=== PATIENT | male | born 1945 | race Hispanic/Latino ===

== ENCOUNTER 2017-08-28 17:05 | Observation (INO) | payer MEDICARE, OTHER ==
[~2017-08-28] VITALS: Ht 170.2 cm; Wt 102.6 kg
[~2017-08-28 17:05] MED LIST: AMITRIPTYLINE100 MG PO; AMLODIPINE BESY10 MG; ATORVASTATIN CA80 MG PO; CHLORTHALIDONE25 MG; GLIMEPIRIDE4 MG PO; HYDRALAZINE HCL25 MG PO; LEVEMIR SQ; LISINOPRIL40 MG; LOSARTAN POTAS100 MG; METFORMIN HCL500 MG PO; METOPROLOL SUCC50 MG; PIOGLITAZONE-M1 EAC1; TRULICITY SQ
[2017-08-28] MEDS ORDERED: ASPIRIN 81 MG CHEW TAB PO ONE (17:45)
[2017-08-28 17:50] LABS: BASOPHILS % 0.3 % (0.0-1.0); EOSINOPHILS # (AUTO) 0.1 (0.0-0.4); EOSINOPHILS % 1.8 % (0.0-6.0); HEMATOCRIT 41.1 % (38.2-49.6); LYMPHOCYTES # (AUTO) 0.8 (1.0-3.2); LYMPHOCYTES % 10.3 % (18.0-39.1); MEAN CORPUSCULAR HGB CONC 34.1 g/dL (31-35); MEAN CORPUSCULAR VOLUME 90.9 fL (81-99); MONOCYTES # (AUTO) 0.6 (0.2-0.8); MONOCYTES % 7.8 % (4.4-11.3); NEUTROPHILS # (AUTO) 6.3 (2.1-6.9); NEUTROPHILS % 79.5 % (38.7-80.0); PLATELET COUNT 204 x10e3/uL (140-360); RED BLOOD COUNT 4.52 x10e6/uL (4.3-5.7); RED CELL DISTRIBUTION WIDTH 12.8 % (11.7-14.4)
[2017-08-28 18:05] LABS: INR 1.17
[2017-08-28 18:06] LABS: PARTIAL THROMBOPLASTIN TIME 27.4 seconds (23.8-35.5)
[2017-08-28 18:13] LABS: ALBUMIN 3.2 g/dL (3.5-5.0); ALBUMIN/GLOBULIN RATIO 0.8 (0.8-2.0); ANION GAP 13.3 mmol/L (8-16); CALCIUM 8.7 mg/dL (8.4-10.2); CREATININE, SERUM 1.58 mg/dL (0.72-1.25); POTASSIUM 4.3 mmol/L (3.5-5.1)
[2017-08-28 18:23] LABS: CREATINE KINASE MB 5.9 ng/mL (0-5.0)
[2017-08-28 18:38] LABS: BILIRUBIN,URINE NEGATIVE (NEGATIVE); KETONES,URINE NEGATIVE (NEGATIVE); LEUKOCYTE ESTERASE ,URINE NEGATIVE (NEGATIVE); NITRITE,URINE NEGATIVE (NEGATIVE); PROTEIN,URINE DIPSTICK 3+ (NEGATIVE); URINE UROBILINOGEN 0.2 mg/dL (0.2 - 1)
[2017-08-28 18:40] LABS: CLARITY,URINE HAZY (CLEAR); COLOR,URINE YELLOW (YELLOW)
[2017-08-28 18:52] LABS: EPITHELIAL CELLS,URINE FEW /LPF
[2017-08-28 18:54] LABS: BACTERIA,URINE RARE /HPF
--- NOTE | 2017-08-28 21:15 | Diagnostic Imaging Report ---
EXAMINATION: CHEST SINGLE (PORTABLE) INDICATION: \S\CHEST PAIN \S\[id number] \S\2020 \S\Y COMPARISON: None FINDINGS: AP view TUBES and LINES: None. LUNGS: Lungs are well inflated. Central pulmonary venous congestion. Right upper lobe opacity between the right fifth and sixth posterior ribs. PLEURA: No pleural effusion or pneumothorax. HEART AND MEDIASTINUM: Cardiac silhouette is mildly enlarged. BONES AND SOFT TISSUES: No acute osseous lesion. Right shoulder prosthesis. Soft tissues are unremarkable. UPPER ABDOMEN: No free air under the diaphragm. IMPRESSION: Right upper lobe opacity may represent pneumonia or a pulmonary lesion. Recommend chest CT with contrast for further evaluation. Signed by: DR. Price Abreu MD on 08/28/2017 9:11 PM
[2017-08-28] MEDS ORDERED: FUROSEMIDE INJ 10 MG/ML 4 ML VIAL IV ONE (23:30)
[2017-08-29] VITALS (8 sets, daily range): BP systolic 135–188; BP diastolic 86–107
[2017-08-29] MEDS ORDERED: MORPHINE SULFATE 2 MG/ML SYR IV PRN (00:15)
[2017-08-29] MEDS ORDERED: DEXTROSE 50% SYRINGE 50 ML IV PRN (00:15)
--- OUTSIDE RECORDS SUMMARY | 2017-08-29 00:15 | XMS REPORT ---
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 Allergies, Adverse Reactions, Alerts This patient has no known allergies or adverse reactions. Medications This patient has no known medications. Results Test Description Test Time Test Comments Text Results Atomic Results Result Comments CHEST SINGLE (PORTABLE) [place] [address] Patient Name: LUAN BOOGIE MR #: [id number] : 1945 Age/Sex: 72/M Req #: [id number] Adm Physician: Ordered by: KAYCE BRYANT MD Report #: [id number] Location: ER Room/Bed: Procedure: [id number] DX/CHEST SINGLE (PORTABLE) Exam Date: 08/28/17 Exam Time: 2019 REPORT STATUS: Signed EXAMINATION: CHEST SINGLE (PORTABLE) INDICATION: COMPARISON: None FINDINGS: AP view TUBES and LINES: None. LUNGS: Lungs are well inflated. Central pulmonary venous congestion. Right upper lobe opacity between the right fifth and sixth posterior ribs. PLEURA: No pleural effusion or pneumothorax. HEART AND MEDIASTINUM: Cardiac silhouette is mildly enlarged. BONES AND SOFT TISSUES: No acute osseous lesion. Right shoulder prosthesis. Soft tissues are unremarkable. UPPER ABDOMEN: No free air under the diaphragm. IMPRESSION: Right upper lobe opacity may represent pneumonia or a pulmonary lesion. Recommend chest CT with contrast for further evaluation. Signed by: DR. Price Abreu MD on 08/28/2017 9:11 PM Dictated By: PRICE ABREU MD 10 Transcribed By: KENTON on 2110 COPY TO: KAYCE BRYANT MD
[2017-08-29] MEDS: CEFTRIAXONE SOD 1 GM VIAL IV SCH ×2 (01:46→13:48)
[2017-08-29 02:40] LABS: CREATINE KINASE MB 4.5 ng/mL (0-5.0)
[2017-08-29] MEDS ORDERED: LISINOPRIL10 MG PO (03:51)
[2017-08-29] MEDS ORDERED: NAPROXEN250 MG PO (03:52)
[2017-08-29] MEDS: INSULIN REGULAR, HUMAN 100 UNIT/1 ML 3ML VIAL SQ SCH ×4 (07:45→21:10)
[2017-08-29] MEDS: HYDRALAZINE HCL 25 MG TAB PO SCH ×2 (08:15→16:50)
[2017-08-29] MEDS: FUROSEMIDE INJ 10 MG/ML 4 ML VIAL IV SCH ×2 (08:15→20:40)
[2017-08-29] MEDS: ASPIRIN 81 MG ENTERIC COATED PO SCH (08:15)
[2017-08-29] MEDS: METOPROLOL TARTRATE 25 MG TAB PO SCH ×2 (08:15→16:50)
[2017-08-29] MEDS: AMLODIPINE BESYLATE 10 MG TAB PO SCH (08:15)
--- NOTE | 2017-08-29 09:49 | Consultation ---
DATE OF CONSULTATION: August 29, 2017 CARDIOLOGY CONSULTATION REASON FOR CONSULTATION: CHF exacerbation. HPI: This is a pleasant 72-year-old male that presented with shortness of breath. According to the patient, for the last 3-4 days he was having shortness of breath that gets worse with exertion. He was not able to lay flat that he decided to come into the emergency room for evaluation. He has a history of CHF, CKD. He denies chest pain, any palpitations, any dizziness. EKG showed normal sinus rhythm with frequent PVCs. His BNP was 841. 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 . PAST SURGICAL HISTORY: Back surgery times 2, cardiac stents, bilateral knee surgery, bowel resection, and prostate surgery times 2. FAMILY HISTORY: Positive for hypertension. SOCIAL HISTORY: He quit smoking and lives at home with family. MEDICATIONS: See med list. ALLERGIES: HE IS NOT ALLERGIC TO ANY MEDICATIONS. REVIEW OF SYSTEMS: Negative except those mentioned above. PHYSICAL EXAMINATION VITAL SIGNS: Temperature 97, heart rate 91, blood pressure 161/100, respirations 19, oxygen saturation 96% on room air. GENERAL: He is awake, alert and oriented times 3. HEENT: Mucous membrane moist. NECK: Supple. LUNGS: Bilateral with decreased breath sounds. CARDIOVASCULAR: S1 and S2 present. ABDOMEN: Soft. NEUROLOGICAL: Intact. He is able to move all extremities. EXTREMITIES: Bilateral lower extremities with trace edema. LABS: Sodium 142, potassium 4.3, chloride 109, CO2 24, BUN 24, creatinine 1.58, glucose 154. White blood cells 7.9, hemoglobin 14, hematocrit 41.1, and platelets 204,000. PT 14, PTT 27.4 and INR 1.17. IMPRESSION 1. Congestive heart failure exacerbation. 2. Diabetes. 3. Hypertension. 4. Chronic kidney disease. 6. BPH. 7. Chronic back pain. 8. History of coronary artery disease with stents. 9. History of cerebrovascular accident. ASSESSMENT AND PLAN: Will get an echocardiogram to assess the LV and valve function. Will continue diuretic. Resume his home medications of beta shola and Norvasc. Will put him on 1.5 L fluid restriction. Continue low salt diet and daily weights. Further cardiac workup pending clinical course. Thank you for this consultation. DICTATED BY JIMMY DELGADO NP Job#: [id number] RI
[2017-08-29 10:28] LABS: CREATINE KINASE MB 5.5 ng/mL (0-5.0)
--- NOTE | 2017-08-29 12:48 | History and Physical ---
INCOMPLETE REPORT Job#: [id number] EV
--- NOTE | 2017-08-29 13:40 | History and Physical ---
CHIEF COMPLAINT: Shortness of breath. HISTORY OF PRESENT ILLNESS: Mr. Chatman is a 72-year-old male who presented to the emergency room with shortness of breath. Patient is a known patient of Dr. Gorman. He reports that the shortness of breath started yesterday and progressively got worse, so he decided to come to the emergency room. He denies any chest pain, nausea, vomiting, or diarrhea. In the emergency room, patient was wheezing and was given diuretics and patient started feeling better and was admitted for further treatment. He reports that he was having symptoms for 3 to 4 days. His BNP was 841 in the emergency room. REVIEW OF SYSTEMS GENERAL: Denies any fever or chills. HEAD: Denies any head trauma or head injury. ENT: Denies any earache, nosebleed, or throat pain. CVS: Denies any chest pain. RESPIRATORY: Shortness of breath. GI: Denies any nausea or vomiting. The rest of the review of systems is negative except as in HPI. PAST MEDICAL HISTORY: Diabetes, hypertension, coronary artery disease, and hypercholesterolemia. PAST SURGICAL HISTORY: Bilateral total knee replacement, colon resection for diverticulitis, 2 back surgeries, appendectomy, cholecystectomy, and stent placement. FAMILY HISTORY: Significant for hypertension in the family. SOCIAL HISTORY: He quit smoking 30 years ago, smoked for 30 years, 1 pack per day. Lives with his . He used to work in a [employer] and last job was with [employer]. PHYSICAL EXAMINATION VITAL SIGNS: Temperature 96.3, pulse of 81, blood pressure 135/89, respiratory rate 18, and O2 sat 98% on 2 L. SKIN: Warm and dry. GENERAL APPEARANCE: Elderly male who was in mild respiratory distress in the emergency [place], but currently doing well. HEENT: Head is atraumatic and normocephalic. Pupils are reactive. NECK: Supple. No JVD. Thyroid is not enlarged. No cervical lymphadenopathy. CHEST: Clear to auscultation bilaterally. HEART: S1 and S2 audible. ABDOMEN: Soft, nontender, and nondistended. EXTREMITIES: No clubbing or cyanosis. Trace pedal edema. NEUROLOGIC: Awake and alert. LABS: White count of 7.9, hemoglobin 14.0, and platelets 204. Chemistry: Sodium 142, potassium 4.3, chloride 109, BUN 24, and creatinine 1.58. There is no baseline creatinine. Creatine kinase 341, CK-MB 5.90, and BNP 841. Blood cultures have been pending. Chest x-ray was showing increased vascular congestion. No focal infiltrate reported as right upper lobe opacity. Urinalysis done in the emergency room is showing wbc's of 6-10. ASSESSMENT: Mr. Biswas is a 72-year-old male who presented with worsening shortness of breath. Patient has a known history of congestive heart failure. According to Dr. Gorman's note, patient has coronary artery disease with previous stent. BNP was 841. Echo has been ordered, but it has not been read. CURRENT PROBLEMS 1. Acute exacerbation of congestive heart failure, likely systolic dysfunction. 2. Possibility of pneumonia. 3. Hypertension. 4. Hyperlipidemia. 5. Coronary artery disease. PLAN 1. Continue the patient on antihypertensive medications. 2. Continue IV Rocephin. I will add azithromycin for possibility of pneumonia. 3. CT chest. Patient has his 02-[id number]-beor smoking history and chest x-ray is reported as right upper lobe opacity. 4. He is on fluid restriction. 5. Patient has CKD. Creatinine is 1.9, currently stable. We will follow closely. Job#: [id number] VAS
[2017-08-29] MEDS ORDERED: NAPROXEN 250 MG TAB PO PRN (14:00)
--- NOTE | 2017-08-29 16:35 | Diagnostic Imaging Report ---
PROCEDURE: CT CHEST WITHOUT CONTRAST CT scan of the chest WITHOUT intravenous contrast, using standard protocol. TECHNIQUE: The chest was scanned utilizing a multidetector helical scanner from the apex to the level of the adrenal glands. No IV contrast was administered per physician's request. Coronal and sagittal multiplanar reformations were obtained. COMPARISON: None. INDICATIONS: CHF, PNEUMONIA FINDINGS: Lines/tubes: None. Lungs and Airways: Focal ground glass opacities in the right upper lobe (series 3, images 26 and 34). Linear opacity in the lateral lingula, likely represent subsegmental atelectasis or scarring. Mild bilateral lower lobe compressive atelectasis. Calcified granuloma in the left upper lobe (series 3, image 21). No nodules, masses, or consolidation. Airways are clear, without endobronchial lesions. Pleura: Small bilateral pleural effusions. Heart and mediastinum: Thyroid is unremarkable. Mild cardiomegaly. Atherosclerotic calcification of the coronary arteries and thoracic aortic arch. Aorta is non-aneurysmal. Main pulmonary artery is mildly enlarged, measuring approximately 3.2 cm. Lymph nodes: No mediastinal, hilar, or axillary adenopathy. Abdomen: Limited views of the upper abdomen show no abnormality within the visualized liver, spleen, pancreas, or kidneys. The adrenal glands are normal. Bones: No aggressive lytic lesion. Soft tissues are grossly unremarkable. IMPRESSION: 1. findings in the right upper lobe may represent pneumonia/infection in the acute clinical setting. Less likely, this may represent interstitial lung disease in the chronic setting. 2. Small bilateral pleural effusions and associated mild bilateral lower lobe compressive atelectasis. 3. Mild cardiomegaly. Main pulmonary artery is mildly enlarged, suggesting pulmonary hypertension. Jordan Prasad M.D. Dictated by: Jordan Prasad M.D. on 08/29/2017 at 16:35 Electronically approved by: Jordan Prasad M.D. on 08/29/2017 at 16:35
[2017-08-29] MEDS: METFORMIN HCL 500 MG TAB PO SCH (16:50)
[2017-08-29] MEDS: GLIMEPIRIDE 2 MG TAB PO SCH (16:50)
[2017-08-29] MEDS ORDERED: NON-FORMULARY MEDICATION (Glimepiride 4 MG) PO SCH (17:00)
[2017-08-29 18:30] LABS: CREATINE KINASE MB 4.1 ng/mL (0-5.0)
[2017-08-29] MEDS: AMITRIPTYLINE HCL 25 MG TAB PO SCH (20:40)
[2017-08-29] MEDS ORDERED: NON-FORMULARY MEDICATION (Amitriptyline Hcl 100 MG) PO SCH (21:00)
[2017-08-29] MEDS ORDERED: NON-FORMULARY MEDICATION (Atorvastatin Calcium 80 MG) PO SCH (21:00)
[2017-08-29] MEDS: ATORVASTATIN 40 MG TAB PO SCH (21:30)
[2017-08-30] VITALS (8 sets, daily range): BP systolic 131–158; BP diastolic 74–93
[2017-08-30] MEDS: CEFTRIAXONE SOD 1 GM VIAL IV SCH ×3 (03:30→23:08)
[2017-08-30 07:24] LABS: BASOPHILS % 0.5 % (0.0-1.0); EOSINOPHILS # (AUTO) 0.1 (0.0-0.4); EOSINOPHILS % 1.9 % (0.0-6.0); HEMOGLOBIN 14.7 g/dL (14.0-18.0); LYMPHOCYTES # (AUTO) 1.2 (1.0-3.2); LYMPHOCYTES % 15.8 % (18.0-39.1); MEAN CORPUSCULAR HEMOGLOBIN 30.8 pg (28-32); MEAN CORPUSCULAR HGB CONC 34.2 g/dL (31-35); MEAN CORPUSCULAR VOLUME 90.1 fL (81-99); MONOCYTES # (AUTO) 0.5 (0.2-0.8); MONOCYTES % 6.9 % (4.4-11.3); NEUTROPHILS # (AUTO) 5.5 (2.1-6.9); NEUTROPHILS % 74.6 % (38.7-80.0); PLATELET COUNT 212 x10e3/uL (140-360); RED BLOOD COUNT 4.77 x10e6/uL (4.3-5.7); RED CELL DISTRIBUTION WIDTH 12.5 % (11.7-14.4)
[2017-08-30] MEDS: INSULIN REGULAR, HUMAN 100 UNIT/1 ML 3ML VIAL SQ SCH ×4 (07:30→20:17)
[2017-08-30 07:53] LABS: ALBUMIN 3.2 g/dL (3.5-5.0); ALBUMIN/GLOBULIN RATIO 0.8 (0.8-2.0); ANION GAP 13.5 mmol/L (8-16); CALCIUM 9.1 mg/dL (8.4-10.2); CHOL/HDL RATIO 5.8 (3.9-4.7); CREATININE, SERUM 1.6 mg/dL (0.72-1.25); POTASSIUM 3.5 mmol/L (3.5-5.1)
[2017-08-30] MEDS: ASPIRIN 81 MG ENTERIC COATED PO SCH (09:23)
[2017-08-30] MEDS: METOPROLOL TARTRATE 25 MG TAB PO SCH ×2 (09:23→16:17)
[2017-08-30] MEDS: GLIMEPIRIDE 2 MG TAB PO SCH ×2 (09:23→16:16)
[2017-08-30] MEDS: HYDRALAZINE HCL 25 MG TAB PO SCH ×2 (09:23→16:16)
[2017-08-30] MEDS: METFORMIN HCL 500 MG TAB PO SCH ×2 (09:23→16:16)
[2017-08-30] MEDS: AZITHROMYCIN 250 MG TAB PO SCH (09:24)
[2017-08-30] MEDS: LISINOPRIL 10 MG TAB PO SCH (09:24)
[2017-08-30] MEDS: AMLODIPINE BESYLATE 10 MG TAB PO SCH (09:24)
[2017-08-30] MEDS: FUROSEMIDE INJ 10 MG/ML 4 ML VIAL IV SCH ×2 (09:42→20:54)
[2017-08-30] MEDS: ONDANSETRON HCL INJ 2 MG/ML VIAL IV PRN (12:32)
--- NOTE | 2017-08-30 13:36 | Diagnostic Imaging Report ---
EXAMINATION: Head CT HISTORY: Slurred speech for the last 2 days, history of stroke COMPARISON: None available TECHNIQUE: Multidetector axial images were obtained with, without contrast from the foramen magnum to the vertex . The images were reconstructed using brain and bone algorithms. Thin section brain images were reformatted into coronal and sagittal planes. Intravenous contrast: None. Motion/streaking artifact limits the evaluation of the skull base and posterior cranial fossa. FINDINGS: Parenchyma: 1. No abnormal densities. 2. No mass or hemorrhage. No CT evidence of acute territorial vascular insult. Extra-axial spaces:No abnormal density. No extra-axial fluid collections Brain volume: Normal for age. Ventricles: No hydrocephalus or displacement. Arteries: No density suggestive of thrombus. Dural sinuses: No abnormal density. Extra-axial spaces: No abnormal density. Foramen magnum: No mass, Chiari malformation, or basilar invagination. Sella: No obvious mass. Paranasal/mastoid sinuses: Imaged portions unremarkable. Skull/Scalp: No lytic or blastic lesions. No fractures. Heterogeneous bone marrow density within the clivus may be related to osteopenia, less likely bone marrow replacement or infiltration. Comparison to prior studies if available is recommended. IMPRESSION: No acute intracranial hemorrhage or cortical infarct. Signed by: Dr. Yasemin Carpenter M.D. on 08/30/2017 1:33 PM
[2017-08-30 15:27] LABS: BILIRUBIN,URINE NEGATIVE (NEGATIVE); COLOR,URINE YELLOW (YELLOW); KETONES,URINE NEGATIVE (NEGATIVE); LEUKOCYTE ESTERASE ,URINE NEGATIVE (NEGATIVE); NITRITE,URINE NEGATIVE (NEGATIVE); PROTEIN,URINE DIPSTICK 3+ (NEGATIVE); URINE UROBILINOGEN 0.2 mg/dL (0.2 - 1)
[2017-08-30 15:29] LABS: CLARITY,URINE SL CLOUDY (CLEAR)
[2017-08-30 15:38] LABS: EPITHELIAL CELLS,URINE RARE /LPF
--- NOTE | 2017-08-30 18:00 | Diagnostic Imaging Report ---
EXAM: Renal Ultrasound INDICATION: \S\REANL FAILURE; MD REQUEST \S\[id number] \S\1707 COMPARISON: None TECHNIQUE: Transverse and longitudinal images of the kidneys and bladder were obtained. FINDINGS: Right Kidney: Size: 11.7 cm Echogenicity: Normal Parenchymal thickness: Normal Collecting system: No hydronephrosis Stones: None Cyst/Mass: 1.2 x 1.5 x 1.5 cm midpole parapelvic cyst with thin septation. Left Kidney: Size: 11.2 cm Echogenicity: Normal Parenchymal thickness: Normal Collecting system: No hydronephrosis Stones: None Cyst/Mass: 1.6 x 1.4 x 1.8 cm superior pole cyst. Bladder: Unremarkable. IMPRESSION: Bilateral renal cysts, mildly complex on the right side. Recommend follow-up with renal ultrasound in 6 months to ensure stability. Signed by: Dr. Jose Luis Lau MD on 08/30/2017 5:56 PM
[2017-08-30] MEDS: AMITRIPTYLINE HCL 25 MG TAB PO SCH (20:54)
[2017-08-30] MEDS: ATORVASTATIN 40 MG TAB PO SCH (20:54)
[2017-08-31] VITALS: BP 131/82
[2017-08-31 04:58] VITALS: BP 137/81
[2017-08-31 07:15] VITALS: BP 133/81
[2017-08-31] MEDS: INSULIN REGULAR, HUMAN 100 UNIT/1 ML 3ML VIAL SQ SCH (07:30)
[2017-08-31 07:35] LABS: HEMATOCRIT 43.4 % (38.2-49.6); HEMOGLOBIN 14.8 g/dL (14.0-18.0); MEAN CORPUSCULAR HEMOGLOBIN 30.6 pg (28-32); MEAN CORPUSCULAR HGB CONC 34.1 g/dL (31-35); MEAN CORPUSCULAR VOLUME 89.9 fL (81-99); PLATELET COUNT 209 x10e3/uL (140-360); RED BLOOD COUNT 4.83 x10e6/uL (4.3-5.7); RED CELL DISTRIBUTION WIDTH 12.4 % (11.7-14.4)
[2017-08-31 07:47] VITALS: BP 133/81
[2017-08-31 08:07] LABS: ANION GAP 15.5 mmol/L (8-16); CREATININE, SERUM 1.85 mg/dL (0.72-1.25); POTASSIUM 3.5 mmol/L (3.5-5.1)
[2017-08-31] MEDS: GLIMEPIRIDE 2 MG TAB PO SCH (08:54)
[2017-08-31] MEDS: AMLODIPINE BESYLATE 10 MG TAB PO SCH (08:54)
[2017-08-31] MEDS: ASPIRIN 81 MG ENTERIC COATED PO SCH (08:54)
[2017-08-31] MEDS: METFORMIN HCL 500 MG TAB PO SCH (08:54)
[2017-08-31] MEDS: AZITHROMYCIN 250 MG TAB PO SCH (08:54)
[2017-08-31] MEDS: FUROSEMIDE INJ 10 MG/ML 4 ML VIAL IV SCH (08:54)
[2017-08-31] MEDS: LISINOPRIL 10 MG TAB PO SCH (08:54)
[2017-08-31] MEDS: METOPROLOL TARTRATE 25 MG TAB PO SCH (08:55)
[2017-08-31] MEDS: HYDRALAZINE HCL 25 MG TAB PO SCH (08:55)
[2017-08-31] MEDS: ONDANSETRON HCL INJ 2 MG/ML VIAL IV PRN (09:10)
[2017-08-31 10:16] LABS: EOSINOPHILS % (MANUAL) 2 % (0-7); LYMPHOCYTES % (MANUAL) 11 % (19-48); MONOCYTES % (MANUAL) 1 % (3.4-9.0); NEUTROPHILS % (MANUAL) 86 % (40-74); PLATELET ESTIMATE ADEQUATE; PLATELET MORPHOLOGY COMMENT NORMAL; RBC MORPHOLOGY COMMENT NORMAL
--- NOTE | 2017-08-31 11:01 | Discharge Summary ---
FINAL DIAGNOSES 1. Ggell-qy-dtcidli congestive heart failure. 2. Diabetes. 3. Hypertension. 4. Chronic kidney disease. ADMISSION HISTORY AND HOSPITAL COURSE: Mr. Biswas is a 72-year-old male who presented with worsening shortness of breath. The patient was started on Lasix. He has a known history of congestive heart failure. He started feeling better. Cardiology was consulted. The patient was continued on diuretics, metoprolol and lisinopril. His home medications were continued. The patient is doing much better today and well compensated. Chest x-ray was done, which showed right upper lobe opacity. Subsequently, CT of the chest done. I have reviewed the images of the CT of the chest, and it showed evidence of fluid overload, which is much better. The patient was lethargic. The day before discharge, CT of the head was done, which was negative. Today, he is awake and alert and doing well. His creatinine has gotten worse with IV diuresis. It is around 1.8. The patient has good urine output. He will follow up with his primary care physician, and will be referred to nephrology from there. This was explained in detail to the patient and the family at bedside. I have asked him to hold off on the metformin until he sees his primary care physician. Continue the rest of the home medications. I have given a prescription of Lasix 40 mg p.o. daily. Discharge medication list reviewed. ANIVAL LEW MD Job#: [id number] YKUNG
[2017-08-31 11:12] VITALS: BP 119/74
[2017-08-31] MEDS ORDERED: LASIX40 MG PO (12:10)
--- NOTE | 2017-08-31 16:29 | Consultation ---
DATE OF CONSULTATION: August 31, 2017 REASON FOR CONSULTATION: COLBY versus chronic kidney disease. HPI: Mr. Chatman is a pleasant 72-year-old man with history of diabetes for the past 20 years and hypertension for the same amount of years. His diabetes is complicated by neuropathy. He presented to the emergency department yesterday with shortness of breath that had progressively been getting worse. He was not taking his diuretics at home because he felt that it was making him go to the bathroom too often. He has been ordered them b.i.d., but he was not taking them at all. Upon presentation, his BNP was 841. He was started on diuretics overnight and at this point is back on room air satting 98%. Upon my exam, he denies shortness of breath, nausea, or cough. He is unaware if he has a diagnosis of kidney disease and does not follow with a skidder. REVIEW OF SYSTEMS: Denies fevers, chills, nausea, vomiting, diarrhea, chest pain, palpitations, abdominal pain, pain or burning with urination, numbness or tingling in upper or lower extremities, changes in mood, changes in appetite, and changes in thirst. PAST MEDICAL HISTORY 1. Diabetes. 2. Hypertension. 3. Coronary artery disease. 4. Hyperlipidemia. PAST SURGICAL HISTORY: 1. Bilateral total knee replacement. 2. Appendectomy. 3. Cholecystectomy. 4. Stent placement. FAMILY HISTORY: Hypertension and renal disease. SOCIAL HISTORY: No alcohol, tobacco, or illicit drug use. PHYSICAL EXAMINATION GENERAL: He is lying comfortably in bed, no acute distress. VITAL SIGNS: Temperature 95.9, heart rate 71, respiratory rate 16, blood pressure 119/74, and O2 sat is 95% on room air. HEENT: NC, AT, EOMI. NECK: Supple. JVD not appreciated. LUNGS: Clear to auscultation bilaterally. No wheezing, rales, or rhonchi. HEART: Regular rate and rhythm. S1 and S2. No murmurs. EXTREMITIES: No edema. Intact pulses. SKIN: No rashes or lesions. NEUROLOGIC: Cranial nerves II through XII are grossly intact. No focal deficits. MUSCULOSKELETAL: Normal to inspection. LABS: Reviewed on electronic medical record. Significant for a hemoglobin of 14.8, BUN of 33, and creatinine of 1.8. Upon presentation, creatinine was 1.6. IMAGING: Reviewed on electronic medical record. Renal ultrasound performed yesterday showed bilateral renal cystic disease and ozyyki-rn-diagaswx large size of kidneys. Head CT performed yesterday showed no acute intracranial abnormality. 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 Chest CT performed soon after that showed possible pneumonia as well as small bilateral pleural effusion and mild bilateral lower lobe compressive atelectasis. ASSESSMENT AND PLAN: A 72-year-old man admitted with acute respiratory insufficiency. 1. Acute respiratory insufficiency has improved, status post IV diuresis. We will continue diuretics at home. Explained that Lasix will last 6 hours and beneficial if he takes it in the morning. 2. Kidney dysfunction, likely this is chronic kidney disease stage 3 in the setting of diabetic and hypertensive nephrosclerosis. Based on current GFR, using metformin is no longer contraindicated, so we would recommend continuing metformin at discharge as well as lisinopril, which will be essentially beneficial in diabetic nephropathy. 3. Accelerated hypertension: We will continue metoprolol, hydralazine, and diuretics. We will have him see us in clinic in 1 week with pre-clinic labs. This was explained to both the patient and his family. Thank you Dr. Martin for allowing me to participate in the care of Mr. Biswas. I will continue to follow closely. Job#: [id number] WANDA
== END 2017-08-31 12:32 | disposition home or self-care (01) ==
LOC: ER 17:05 → ERHOLD 08-29 00:13 → MED/SURG3 08-29 02:04
PROVIDERS: ADMIT Internal Medicine; ATTEND Internal Medicine
DX: I13.0 Hypertensive heart and chronic kidney disease with heart failure and stage 1 through stage 4 chronic kidney disease, or unspecified chronic kidney disease (principal); I50.21 Acute systolic (congestive) heart failure; N30.01 Acute cystitis with hematuria; I25.10 Atherosclerotic heart disease of native coronary artery without angina pectoris; Z95.5 Presence of coronary angioplasty implant and graft; Z87.891 Personal history of nicotine dependence; E78.5 Hyperlipidemia, unspecified; E11.42 Type 2 diabetes mellitus with diabetic polyneuropathy; Z96.653 Presence of artificial knee joint, bilateral; Z82.49 Family history of ischemic heart disease and other diseases of the circulatory system; R06.89 Other abnormalities of breathing; E11.22 Type 2 diabetes mellitus with diabetic chronic kidney disease; N18.3 Chronic kidney disease, stage 3 (moderate); N40.0 Benign prostatic hyperplasia without lower urinary tract symptoms; Z86.73 Personal history of transient ischemic attack (TIA), and cerebral infarction without residual deficits; G89.29 Other chronic pain
CPT/HCPCS: 36415 ×4; 70450; 71045; 71250; 76770; 80048; 80053 ×2; 80061; 81001 ×2; 82550 ×2; 82553 ×2; 82948 ×3; 83605; 83880; 84484 ×2; 85007; 85025 ×2; 85027; 85610; 85730; 87040; 87086 ×2; 93005; 93306; G0378 ×3; J0696 ×2; J1940 ×4; J2405 ×2

== ENCOUNTER → 2020-02-03 | Day surgery (SDC) | payer MEDICARE, OTHER ==
[2020-01-29 15:54] LABS: BASOPHILS % 0.1 % (0.0-1.0); EOSINOPHILS # (AUTO) 0.2 (0.0-0.4); EOSINOPHILS % 2.8 % (0.0-6.0); HEMATOCRIT 31.8 % (38.2-49.6); HEMOGLOBIN 10.3 g/dL (14.0-18.0); LYMPHOCYTES # (AUTO) 1.1 (1.0-3.2); LYMPHOCYTES % 15.6 % (18.0-39.1); MEAN CORPUSCULAR HEMOGLOBIN 30.4 pg (28-32); MEAN CORPUSCULAR HGB CONC 32.4 g/dL (31-35); MEAN CORPUSCULAR VOLUME 93.8 fL (81-99); MONOCYTES # (AUTO) 0.5 (0.2-0.8); MONOCYTES % 7.4 % (4.4-11.3); NEUTROPHILS # (AUTO) 5.3 (2.1-6.9); NEUTROPHILS % 73.8 % (38.7-80.0); PLATELET COUNT 150 x10e3/uL (140-360); RED BLOOD COUNT 3.39 x10e6/uL (4.3-5.7); RED CELL DISTRIBUTION WIDTH 13.2 % (11.7-14.4)
[2020-01-29 16:04] LABS: INR 1.01; PROTHROMBIN TIME 13.8 seconds (11.9-14.5)
[2020-01-29 16:05] LABS: PARTIAL THROMBOPLASTIN TIME 29.9 seconds (23.8-35.5)
[2020-01-29 16:11] LABS: ANION GAP 15.2 mmol/L (8-16); CALCIUM 9.1 mg/dL (8.4-10.2); CREATININE, SERUM 2.85 mg/dL (0.72-1.25); POTASSIUM 5.2 mmol/L (3.5-5.1)
--- NOTE | 2020-01-29 16:22 | Diagnostic Imaging Report ---
EXAMINATION: CHEST 2 VIEWS INDICATION: Pre-operative COMPARISON: Chest radiograph 08/28/2017 FINDINGS: LINES/TUBES:None LUNGS:The lungs are well-inflated. There is perihilar fullness and indistinctness of the pulmonary vasculature. No focal consolidation or pulmonary edema. PLEURA:No pleural effusion or pneumothorax. MEDIASTINUM:The cardiomediastinal silhouette appears normal in size and shape. BONES/SOFT TISSUES:No acute osseous injury. ABDOMEN:No free air under the diaphragm. IMPRESSION: Mild central pulmonary vascular congestion. No focal pneumonia. Signed by: Kerri Gabriel MD on 01/29/2020 4:18 PM
[~2020-02-03] MED LIST changes: +ACETAMINOPHEN 325 MG TAB PO PRN; +ASPIRIN81 MG PO; +ATROPINE SULFATE 1 MG/ML VIAL ONE; +BACITRACIN 50,000 UNIT VIAL ONE; +BUMETANIDE 1 MG TAB PO SCH; +BUMETANIDE1 MG PO; +BUPIVACAINE HCL 0.5% INJ 30 ML VIAL INJ ONE; +CARISOPRODOL 350 MG TAB ONE; +CARISOPRODOL 350 MG TAB PO PRN; +CARVEDILOL 12.5 MG TAB PO SCH; +CARVEDILOL12.5 MG PO; +CEFAZOLIN SOD 1 GM/NS 50ML 100 ML IV ONE; +CEFAZOLIN SOD 1 GM/NS 50ML 50 ML IV SCH; +CEPACOL SORE THROAT LOZENGES PO PRN; +CRESTOR10 MG PO; +DEXAMETHASONE SOD PHOS INJ 4 MG/ML VIAL ONE; +DEXTROSE 5% 250ML 250 ML IV ONE; +FELODIPINE ER10 MG PO; +FENTANYL CITRATE/PF 100MCG/2 ML INJ ONE; +HEPARIN SOD/SOD CHLORIDE 1,000 ML ONE; +HYDROMORPHONE 2MG/ML 2 MG/ML ML IV PRN; +LACTATED RINGER'S 1,000 ML IV SCH; +LASIX40 MG PO; +LIDOCAINE 1% W/EPINEPHRINE 20 ML VIAL ONE; +LIDOCAINE HCL 2% LOCAL INJ 5 ML SDV VIAL INJ ONE; +LISINOPRIL 10 MG TAB PO SCH; +LISINOPRIL10 MG PO; +MAGNESIUM/ALUMINUM/SIMETHICONE 30 ML UDC PO PRN; +MIDAZOLAM HCL 2 MG/2 ML VIAL ONE; +MORPHINE SULFATE 5 MG/ML VIAL IM PRN; +NAPROXEN250 MG PO; +NEOSTIGMINE 1 MG/ML 10ML VIAL ONE; +NON-FORMULARY MEDICATION (Felodipine (Felodipine Er) 10 MG) PO SCH; +NON-FORMULARY MEDICATION (Glimepiride 4 MG) PO SCH; +NON-FORMULARY MEDICATION ([Trulicity] 1.5 MG) SQ SCH; +ONDANSETRON HCL INJ 2MG/ML 2ML 2 MG/ML VIAL IV PRN; +ONDANSETRON HCL INJ 2MG/ML 2ML 2 MG/ML VIAL ONE; +OXYCODONE/ACETAMINOPHEN 5-325 1 EACH TABLET ONE; +OXYCODONE/ACETAMINOPHEN 5-325 1 EACH TABLET PO PRN; +PROMETHAZINE HCL (IM) 25 MG/ML VIAL IM PRN; +PROPOFOL IV EMULSION 10 MG/ML 20 ML VIAL ONE; +ROCURONIUM BROMIDE 10 MG/ML 5ML VIAL IV ONE; +SEVOFLURANE INHAL SOLN 250 ML PEN BTL ONE; +SIMVASTATIN 40 MG TAB PO SCH; +SPIRONOLACTONE 25 MG TAB PO SCH; +SPIRONOLACTONE25 MG PO; +THROMBIN FOR SOLN 5,000 UNIT VIAL ONE; +ZOLPIDEM TARTRATE 5 MG TAB PO PRN
--- NOTE | 2020-02-03 11:33 | Operative Report ---
DATE OF PROCEDURE: 02/03/2020 SURGEON: Josef Vazquez MD PREOPERATIVE DIAGNOSES: 1. C4-5 and C5-6 spondylosis with radiculopathy. 2. Left carpal tunnel syndrome. POSTOPERATIVE DIAGNOSES: 1. C4-5 and C5-6 spondylosis with radiculopathy. 2. Left carpal tunnel syndrome. PROCEDURES: 1. C4-5 anterior cervical diskectomy and microsurgical osteophyte resection, allograft fusion, 84403. 2. C5-6 anterior cervical diskectomy and microsurgical osteophyte resection, allograft fusion, 35436. 3. Preparation of tricortical iliac crest allograft, 11601. 4. C4-5 and C5-6 anterior cervical plating with Synthes CSLP plate, 38991. 5. Left carpal tunnel release, 33371-00. ANESTHESIA: General. INDICATIONS: The patient is a 74-year-old man, who presents with C4-5 and C5-6 spondylosis and left carpal tunnel syndrome, was taken surgery for two-level ACDF and simultaneous left carpal tunnel release. PROCEDURE IN DETAIL: After induction of general anesthesia, the patient was placed on the operating table in supine position. The right side of neck was prepped and draped in sterile fashion. The fluoroscopic C-arm was positioned in cross-table lateral orientation. A transverse incision was created on the right side of neck superimposed on the C5 vertebral body as determined by fluoroscopy. The platysma was divided in line with the incision. A subplatysmal dissection was carried out and avascular plane of dissection was carried out medial to the sternocleidomastoid muscle and was followed medial to the carotid sheath to the anterior border of cervical spine. The deep cervical fascia was opened. The esophagus was retracted to the left. The attachments of longus colli muscles to the anterolateral aspects of vertebral bodies of C4, C5 and C6 were divided. The anterior longitudinal ligament was resected. Terreton posts were inserted into C4 and C6. The Terreton distractor was used to distract both disk spaces simultaneously. The anterior annuli of disks were incised with a #11 blade. The contents of both disks were thoroughly evacuated with angled curettes and pituitary rongeurs. The posterior osteophytes were meticulously drilled with a 2 mm cutting bur until they were completely removed. The posterior annulus of the disk, herniated disk material, and posterior longitudinal ligament were resected layer by layer until the dura was fully exposed and decompressed. The medial aspects of the uncinate processes were resected bilaterally at both levels until the origins of the C5 and C6 nerve roots were fully exposed and decompressed. Two pieces of tricortical iliac crest allograft were then cut to size and shapes of the disk spaces and were inserted into disk spaces under distraction and fluoroscopic guidance. The distraction was released and distraction posts were removed. A Synthes CSLP variable type anterior cervical plate was selected and was fixed to the vertebral bodies of C4, C5 and C6 with two pairs of 14 x 4.35 mm screws. All screw holes were first drilled and tapped on the lateral fluoroscopic guidance. All screws were locked with the appropriate locking screws. An excellent construct was obtained. The wound was copiously irrigated with bacitracin solution. Meticulous hemostasis was secured. The retractor was removed. The platysma was closed with 3-0 Vicryl sutures. The skin was closed with 4-0 Monocryl sutures in subcuticular fashion. Steri-Strips and dressing were applied. The patient was awakened, extubated, and taken to postanesthesia care unit in stable condition. The drapes were removed. The left arm was abducted over a hand table. The left hand, wrist, and forearm were prepped and draped circumferentially in sterile fashion. A tourniquet was inflated over the upper arm to 250 mmHg. A small midline incision was created over the median palmar crease of the hand just distal to the distal flexor crease of the wrist. The subcutaneous fat was divided. The transverse carpal ligament was exposed. The transverse carpal ligament was then incised with a #15C blade until the underlying median nerve came into view. As the bindery assistant retracted the skin edges, the transverse carpal ligament was divided proximally and distally until the full length of median nerve was exposed and decompressed. The point of maximum compression of nerve appeared to be about 2 cm distal to the distal flexor crease of the wrist, where the ligament was at its thickest. More distally, the recurrent motor branch of the nerve was preserved within this fat pad. The wound was irrigated with bacitracin solution. The subcutaneous layer was closed with a 3-0 Vicryl suture. The skin was closed with a 3-0 nylon suture in a horizontal mattress fashion. A dressing was applied and hand was wrapped. The patient was awakened, extubated, and taken to postanesthesia care unit in stable condition. No intraoperative complications were encountered. Estimated blood loss was minimal. Josef Vazquez MD PP/DORIAN /[id number]
--- NOTE | 2020-02-03 14:03 | Diagnostic Imaging Report ---
EXAM: C-SPINE 2 VIEWS AP LATERAL DATE: 02/03/2020 1:10 PM INDICATION: Status post surgery COMPARISON: None FINDINGS/IMPRESSION: The spine is visualized through the top of C6. There are postsurgical changes from anterior instrumented fusion from C4 through C6. Plate and screw fixation hardware appear intact and in appropriate position. There is retrolisthesis of C3 and C4. There is no evidence for acute fracture or dislocation. The prevertebral soft tissues are unremarkable. The visualized lung apices are clear. Signed by: Dr. Calvin Wilkerson MD on 02/03/2020 2:00 PM
[2020-02-03 15:00] VITALS: BP 126/88
== END | disposition home or self-care (01) ==
LOC: OR 05:27
PROVIDERS: ATTEND Neurological Surgery
DX: G56.02 Carpal tunnel syndrome, left upper limb (principal); M47.22 Other spondylosis with radiculopathy, cervical region; I45.10 Unspecified right bundle-branch block; I44.4 Left anterior fascicular block; I25.10 Atherosclerotic heart disease of native coronary artery without angina pectoris; E11.22 Type 2 diabetes mellitus with diabetic chronic kidney disease; I12.9 Hypertensive chronic kidney disease with stage 1 through stage 4 chronic kidney disease, or unspecified chronic kidney disease; N18.9 Chronic kidney disease, unspecified; Z01.810 Encounter for preprocedural cardiovascular examination; Z01.812 Encounter for preprocedural laboratory examination; Z01.818 Encounter for other preprocedural examination; Z11.59 Encounter for screening for other viral diseases; Z79.84 Long term (current) use of oral hypoglycemic drugs; Z79.82 Long term (current) use of aspirin; Z86.73 Personal history of transient ischemic attack (TIA), and cerebral infarction without residual deficits; Z98.61 Coronary angioplasty status
CPT/HCPCS: 20931; 22551; 22552; 22845; 36415 ×2; 64721; 71046; 72040; 80048; 82948; 84132; 85025; 85610; 85730; 86850; 86900; 88304; 93005; C1713 ×4; C1763; J0461; J0690; J1100; J2001; J2250; J2405; J2704; J2710; J3010; J7070; U0002; 77003; J2270

== ENCOUNTER → 2020-02-29 | Outpatient (CLI) | payer MEDICARE, OTHER ==
[~2020-02-29] MED LIST changes: -ACETAMINOPHEN 325 MG TAB PO PRN; -ATROPINE SULFATE 1 MG/ML VIAL ONE; -BACITRACIN 50,000 UNIT VIAL ONE; -BUMETANIDE 1 MG TAB PO SCH; -BUPIVACAINE HCL 0.5% INJ 30 ML VIAL INJ ONE; -CARISOPRODOL 350 MG TAB ONE; -CARISOPRODOL 350 MG TAB PO PRN; -CARVEDILOL 12.5 MG TAB PO SCH; -CEFAZOLIN SOD 1 GM/NS 50ML 100 ML IV ONE; -CEFAZOLIN SOD 1 GM/NS 50ML 50 ML IV SCH; -CEPACOL SORE THROAT LOZENGES PO PRN; -DEXAMETHASONE SOD PHOS INJ 4 MG/ML VIAL ONE; -DEXTROSE 5% 250ML 250 ML IV ONE; -FENTANYL CITRATE/PF 100MCG/2 ML INJ ONE; -HEPARIN SOD/SOD CHLORIDE 1,000 ML ONE; -HYDROMORPHONE 2MG/ML 2 MG/ML ML IV PRN; -LACTATED RINGER'S 1,000 ML IV SCH; -LIDOCAINE 1% W/EPINEPHRINE 20 ML VIAL ONE; -LIDOCAINE HCL 2% LOCAL INJ 5 ML SDV VIAL INJ ONE; -LISINOPRIL 10 MG TAB PO SCH; -MAGNESIUM/ALUMINUM/SIMETHICONE 30 ML UDC PO PRN; -MIDAZOLAM HCL 2 MG/2 ML VIAL ONE; -MORPHINE SULFATE 5 MG/ML VIAL IM PRN; -NEOSTIGMINE 1 MG/ML 10ML VIAL ONE; -NON-FORMULARY MEDICATION (Felodipine (Felodipine Er) 10 MG) PO SCH; -NON-FORMULARY MEDICATION (Glimepiride 4 MG) PO SCH; -NON-FORMULARY MEDICATION ([Trulicity] 1.5 MG) SQ SCH; -ONDANSETRON HCL INJ 2MG/ML 2ML 2 MG/ML VIAL IV PRN; -ONDANSETRON HCL INJ 2MG/ML 2ML 2 MG/ML VIAL ONE; -OXYCODONE/ACETAMINOPHEN 5-325 1 EACH TABLET ONE; -OXYCODONE/ACETAMINOPHEN 5-325 1 EACH TABLET PO PRN; -PROMETHAZINE HCL (IM) 25 MG/ML VIAL IM PRN; -PROPOFOL IV EMULSION 10 MG/ML 20 ML VIAL ONE; -ROCURONIUM BROMIDE 10 MG/ML 5ML VIAL IV ONE; -SEVOFLURANE INHAL SOLN 250 ML PEN BTL ONE; -SIMVASTATIN 40 MG TAB PO SCH; -SPIRONOLACTONE 25 MG TAB PO SCH; -THROMBIN FOR SOLN 5,000 UNIT VIAL ONE; -ZOLPIDEM TARTRATE 5 MG TAB PO PRN
--- NOTE | 2020-02-29 11:11 | Diagnostic Imaging Report ---
Cervical spine, 4 views INDICATION: ^[id number] ^[id number] ^EVALUATE FUSION STATUS Comparison: 02/03/2020. Discussion: Cervical spine is visualized from C2 through C7. Anterior fusion changes are again noted from C4 through C6. Hardware appears to be intact. There is stable slight retrolisthesis of C3 on C4 which is not worse on flexion or extension views. Stable alignment on AP views. Negative for abnormal prevertebral soft tissue thickening. Disc-osteophyte complex is noted at C3-4. Osseous fusion is identified from C4 through C6 anteriorly. IMPRESSION: 1. Stable post surgical changes from C4 to C6 anterior fusion with evidence of bony fusion along the C4-C6 vertebral bodies. 2. Stable slight retrolisthesis of C3 on C4 without exaggeration on flexion or extension views. Signed by: Gurdeep Palacios MD on 02/29/2020 11:07 AM
== END ==
LOC: RAD 10:34
PROVIDERS: ATTEND Neurological Surgery
DX: M50.20 Other cervical disc displacement, unspecified cervical region (principal); M43.22 Fusion of spine, cervical region
CPT/HCPCS: 72050

== ENCOUNTER → 2020-08-29 | Outpatient (CLI) | payer MEDICARE, OTHER | LOC: RAD 10:20 | PROVIDERS: ATTEND Neurological Surgery | DX: M50.20 Other cervical disc displacement, unspecified cervical region (principal); M43.22 Fusion of spine, cervical region | CPT/HCPCS: 72050 ==